=== PATIENT | female | born 1975 | race Caucasian/White ===

== ENCOUNTER 2018-07-28 13:16 | Emergency (ER) | payer OTHER, MEDICAID, SELFPAY ==
[2018-07-28 13:22] VITALS: BP 145/88; PULSE 84; RESP 20; TEMP 35.9; O2SAT 98
--- NOTE | 2018-07-28 13:25 | DI.RAD.S_ITS ---
PROCEDURE: XR FINGER RT MIN 2V INDICATIONS: deformity TECHNIQUE: AP hand, 2 views of the fifth finger(s) acquired. COMPARISON: None. FINDINGS: Bones: There is a posterior dislocation of the fifth finger at the proximal interphalangeal joint. No suspicious bony lesions. Soft tissues: No suspicious soft tissue calcifications. IMPRESSION: Posterior dislocation of the fifth finger at the proximal interphalangeal joint. Dictated by: Gonzalez Castle M.D. on 07/28/2018 at 14:37 Approved by: Gonzalez Castle M.D. on 07/28/2018 at 14:38
--- NOTE | 2018-07-28 14:08 | DI.RAD.S_ITS ---
PROCEDURE: XR SHOULDER RT MIN 2V INDICATIONS: pain fall TECHNIQUE: 3 views of the shoulder were acquired. COMPARISON: None. FINDINGS: Bones: No fractures or dislocations. No suspicious bony lesions. Visualized ribs appear intact. Soft tissues: No suspicious soft tissue calcifications. IMPRESSION: No fracture or dislocation. Dictated by: Gonzalez Castle M.D. on 07/28/2018 at 15:51 Approved by: Gonzalez Castle M.D. on 07/28/2018 at 15:51
--- NOTE | 2018-07-28 14:43 | ED_ITS ---
HPI - Extremity Injury (Upper) General Chief Complaint: Extremity Injury, Upper Stated Complaint: fell off scooter/injured finger R hand Time Seen by Provider: 07/28/18 13:38 Source: patient Mode of arrival: ambulatory Limitations: no limitations History of Present Illness HPI narrative: Patient is a 42-year-old female who presents after a skateboarding accident. She fell onto her right side. She did land on her face no loss of consciousness. She landed on her right shoulder as well she has an obvious pinky dislocation. No head injury no neck pain no numbness or tingling. She basically says everything hurts. He is ambulatory in the ED MD complaint: injury to: right Related Data Allergies Allergy/AdvReac Type Severity Reaction Status Date / Time Penicillins AdvReac Hives Verified 07/28/18 13:21 Review of Systems Review of Systems ROS Unobtainable: All systems reviewed & are unremarkable except as noted in HPI and below Eyes Denies change in vision, Denies eye discharge, Denies irritation and Denies loss of vision Cardiovascular Denies chest pain, Denies irregular heart rhythm, Denies lightheadedness, Denies palpitations, Denies dyspnea, Denies dyspnea on exertion and Denies orthopnea Respiratory Denies cough, Denies dyspnea, Denies dyspnea on exertion and Denies wheezing Gastrointestinal Gastrointestinal: Denies abdominal pain, Denies change in bowel habits, Denies diarrhea, Denies nausea and Denies vomiting Genitourinary Denies hematuria, Denies flank pain, Denies urinary incontinence and Denies urinary urgency Musculoskeletal Reports deformity (Right pinky) Neurologic Denies loss of vision Endocrine Denies palpitations Allergic/Immunologic Denies wheezing [facility] Medical History Hypothyroid (Acute) Social History Smoking Status: Never smoker Social History Smoking Status: Never smoker Exam Initial Vital Signs Initial Vital Signs: Vital Signs Temperature 96.6 F L 07/28/18 13:22 Pulse Rate 84 07/28/18 13:22 Respiratory Rate 20 07/28/18 13:22 Blood Pressure 145/88 H 07/28/18 13:22 Pulse Oximetry 98 07/28/18 13:22 GENERAL: [Well-appearing, well-nourished] and in [no acute] distress. HEENT: Head atraumatic,EOMI, pupils reactive, minimal right-sided facial swelling no abrasion no contusion no periorbital swelling NECK: No vertebral tenderness no step-offs full range of motion CARDIOVASCULAR: Regular rate and rhythm without murmurs, rubs or gallops. RESPIRATORY: Breath sounds equal bilaterally, no wheezes rales or rhonchi. ABDOMEN: Soft, nontender. Normoactive bowel sounds all 4 quadrants. No guarding or rebound. EXTREMITIES: Normal range of motion, no clubbing or edema. Neurovascularly intact Right shoulder is tender full range of motion, slightly tender today Right pinky PIP deformity NEUROLOGICAL: Alert and oriented x4.Normal gait and speech. Cranial nerves II th rough XII grossly intact. SKIN: Warm, dry, no laceration, no petechiae, no rashes or lesions. Procedures Orthopedic Joint Reduction Joint #1: Time Out Performed: Yes Side: right Joint Reduction Location: finger (5th) Local Anesthesia: lidocaine 1% Amount of anesthesic used (mL): 2 Technique used: traction/counter-traction Post-reduction neuro exam: intact Post-reduction vascular: intact Post Reduction X-Ray Obtained: No Post Reduction X-Ray Results: reduced Splint Applied: No Patient Tolerated Procedure: Well Course Orders Ordered: ED Orders 07/28/18 13:25 XR finger RT min 2V Stat 07/28/18 14:08 XR shoulder RT min 2V Stat Vital Signs - 8 hr 07/28/18 13:22 Temperature 96.6 F L Pulse Rate 84 Respiratory Rate 20 Blood Pressure 145/88 H Pulse Oximetry 98 MDM - Extremity Injury (Upper) Imaging Data right 5 th finger : Radiologist's impression: PROCEDURE: XR FINGER RT MIN 2V INDICATIONS: deformity TECHNIQUE: AP hand, 2 views of the fifth finger(s) acquired. COMPARISON: None. FINDINGS: Bones: There is a posterior dislocation of the fifth finger at the proximal interphalangeal joint. No suspicious bony lesions. Soft tissues: No suspicious soft tissue calcifications. IMPRESSION: Posterior dislocation of the fifth finger at the proximal interphalangeal joint. Dictated by: Gonzalez Castle M.D. on 07/28/2018 at 14:37 right shoulder: Radiologist's impression: PROCEDURE: XR SHOULDER RT MIN 2V INDICATIONS: pain fall TECHNIQUE: 3 views of the shoulder were acquired. COMPARISON: None. FINDINGS: Bones: No fractures or dislocations. No suspicious bony lesions. Visualized ribs appear intact. Soft tissues: No suspicious soft tissue calcifications. IMPRESSION: No fracture or dislocation. Dictated by: Gonzalez Castle M.D. on 07/28/2018 at 15:51 Discharge Plan Departure Patient Disposition: Home Clinical Impression: Dislocation of finger PIP joint Qualifiers: Encounter type: initial encounter Qualified Code(s): S63.289A - Dislocation of proximal interphalangeal joint of unspecified finger, initial encounter Discharge Date/Time: 07/28/18 15:26 Interventions: ED Discharge Assessment Last Done: 07/28/18 15:25 Instructions: Finger Dislocation Activity Restrictions/Additional Instructions: *You have been diagnosed with right 5th finger dislocation *What to do: It may be sore for the next few days *Continue to take medications as directed Ibuprofen as directed *Follow up with your primary care provider in 2-3 days *Return to ER if you should have any new, worsening or concerning symptoms
[2018-07-28 15:25] VITALS: BP 153/91; PULSE 79; O2SAT 98
== END 2018-07-28 15:26 | disposition home or self-care (01) ==
PROVIDERS: Emergency Provider Emergency Medicine
DX: S63.286A Dislocation of proximal interphalangeal joint of right little finger, initial encounter (principal); M25.511 Pain in right shoulder; V00.131A Fall from skateboard, initial encounter
CPT/HCPCS: 26770; 73030; 73140; 99282; 99283

== ENCOUNTER 2018-09-06 19:44 | Emergency (ER) | payer OTHER, MEDICAID, SELFPAY ==
--- NOTE | 2018-09-06 19:55 | ED.URI ---
HPI - URI/Sore Throat <Ashley Mota PA-C - Last Filed: 09/06/18 22:05> General Chief Complaint: Upper Respiratory Symptoms Stated Complaint: COLD SYMPTOMS Time Seen by Provider: 09/06/18 19:55 Source: patient Mode of arrival: ambulatory Limitations: no limitations History of Present Illness HPI Narrative: This 42-year-old female comes in due to upper respiratory symptoms. She states that she had a cold for 2 weeks last month which resolved, then shortly after developed a dry cough which she has had for 2 weeks. Today, she started producing some clear, thick sticky mucous, states there was a slight blood tinge to that 1 time. She does feel like she has tight chest at times wheeze. Her chest is sore to touch. She does not have nasal symptoms, sinus pain or sore throat this time. She denies new pain or swelling in the extremities. She denies fever, chills, sweats or other new symptoms on systems review. She denies any known exposures, no sick contacts. She denies possibility of Related Data Allergies Allergy/AdvReac Type Severity Reaction Status Date / Time Penicillins AdvReac Hives Verified 07/28/18 13:21 Review of Systems <Ashley Mota PA-C - Last Filed: 09/06/18 22:05> Review of Systems ROS Unobtainable: All systems reviewed & are unremarkable except as noted in HPI and below PFSH <Ashley Mota PA-C - Last Filed: 09/06/18 22:05> Medical History (Updated 09/06/18 @ 20:47 by Ashley Mota PA-C) Hypothyroid (Chronic) Social History Smoking Status: Never smoker Social History Smoking Status: Never smoker Exam <Ashley Mota PA-C - Last Filed: 09/06/18 22:05> Narrative Exam Narrative: GENERAL APPEARANCE: Patient sitting comfortably, in no distress. HEAD: No sinus TTP. EYES: PERRL, EOMI. EARS: Normal auditory canals, TMS intact with normal light reflexes. ORAL CAVITY: Normal oropharynx. THROAT: Clear. PND noted NECK/THYROID: Neck supple, full range of motion, shotty anterior cervical lymphadenopathy. CHEST: Mild tenderness to palpation LUNGS: Clear to auscultation bilaterally, intermittent dry cough on exam. EXTREMITIES: No cyanosis or edema HEART: RRR without murmur, nl S1, S2, no S3 or S4. Initial Vital Signs Initial Vital Signs: Vital Signs Temperature 98.5 F 09/06/18 19:58 Pulse Rate 80 09/06/18 19:58 Respiratory Rate 20 09/06/18 19:58 Blood Pressure 160/93 H 09/06/18 19:58 Pulse Oximetry 100 09/06/18 19:58 <Doc Cote DO - Last Filed: 09/07/18 06:27> Initial Vital Signs Initial Vital Signs: Vital Signs Temperature 98.5 F 09/06/18 19:58 Pulse Rate 80 09/06/18 19:58 Respiratory Rate 20 09/06/18 19:58 Blood Pressure 160/93 H 09/06/18 19:58 Pulse Oximetry 100 09/06/18 19:58 Course <Ashley Mota PA-C - Last Filed: 09/06/18 22:05> Additional Information: Patient is feeling significantly improved after nebulizer treatment. Symptoms consistent with viral URI/bronchitis. Given albuterol inhaler with spacer and training by respiratory therapy, advised follow-up with PCP in the next few days to determine whether any further treatment needed, and return if acutely worse. She is agreeable Orders Ordered: Discontinued Medications Albuterol/Ipratropium (Duoneb) 3 ml INH NOW ONE Stop: 09/06/18 20:02 Last Admin: 09/06/18 20:12 Dose: 3 ml Vital Signs - 8 hr 09/06/18 19:58 09/06/18 20:12 09/06/18 20:51 Temperature 98.5 F Pulse Rate 80 66 83 Respiratory Rate 20 20 18 Blood Pressure 160/93 H Blood Pressure [Left Wrist] 154/90 H Pulse Oximetry 100 99 100 <Doc Cote DO - Last Filed: 09/07/18 06:27> Orders Ordered: Discontinued Medications Albuterol/Ipratropium (Duoneb) 3 ml INH NOW ONE Stop: 09/06/18 20:02 Last Admin: 09/06/18 20:12 Dose: 3 ml Vital Signs - 8 hr 09/06/18 19:58 09/06/18 20:12 09/06/18 20:51 Temperature 98.5 F Pulse Rate 80 66 83 Respiratory Rate 20 20 18 Blood Pressure 160/93 H Blood Pressure [Left Wrist] 154/90 H Pulse Oximetry 100 99 100 MDM - URI/Sore Throat <Ashley Mota PA-C - Last Filed: 09/06/18 22:05> Imaging Data Chest x-ray: Radiologist's impression: [address] [address] XRay Report Signed Patient: Akua Jay LMR#: [id number] : 1975Acct:[id number] Age/Sex: 42 / FDate of Service: 09/06/18 Loc: ED Accession Number: [id number] Procedure: XR chest 2V Ordering Provider: Ashley Mota P.A-C PROCEDURE: XR CHEST 2V INDICATIONS: cough TECHNIQUE: 2 views of the chest were acquired. COMPARISON: None. FINDINGS: Surgical changes and devices: None. Lungs and pleura: No acute consolidation. Scattered subsegmental atelectasis and/or scarring. . No pleural effusions or pneumothorax. Mediastinum: Mediastinal contours are normal. Heart size is normal. Bones and chest wall: No suspicious bony abnormalities. Soft tissues appear unremarkable. IMPRESSION: No acute disease Dictated by: Bobby Villeda M.D. on 09/06/2018 at 20:34 Approved by: Bobby Villeda M.D. on 09/06/2018 at 20:35 Discharge Plan Departure Patient Disposition: Home Clinical Impression: Bronchitis Reactive airway disease with acute exacerbation Qualifiers: Asthma severity: mild Asthma persistence: intermittent Qualified Code(s): J45.21 - Mild intermittent asthma with (acute) exacerbation Discharge Date/Time: 09/06/18 20:55 Interventions: ED Discharge Assessment Last Done: 09/06/18 20:55 Instructions: DI for Acute Bronchitis, DI for Reactive Airway Disease-Adult Activity Restrictions/Additional Instructions: Your chest x-ray is normal today. I suspect that your cough is due to bronchitis (a chest cold) as well as reactive airways, which is an asthma like reaction that can cause cough, tight chest, and wheeze when you are sick. Please use the inhaler with the spacer that we gave you as often as needed for cough or wheeze. Also start [id number] Aleve (naproxen) 220 mg twice daily for your sore chest. You should return as we talked about if you have any acutely worsening breathing troubles, or chest pain, or new symptoms such as high fever. Otherwise, please follow-up with your PCP for recheck next week to determine whether you need any additional treatment. Referrals: Jesi Macias [Other] <Doc Cote DO - Last Filed: 09/07/18 06:27> Cosign ED Attending [place] Attestation: I was immediately available in the department for consultation. Documentation has been reviewed. I agree with assessment and plan.
[2018-09-06 19:58] VITALS: BP 160/93; PULSE 80; RESP 20; TEMP 36.9; O2SAT 100; BMI 49.7
--- NOTE | 2018-09-06 20:08 | ED_ITS ---
HPI - URI/Sore Throat <Ashley Mota PA-C - Last Filed: 09/06/18 22:05> General Chief Complaint: Upper Respiratory Symptoms Stated Complaint: COLD SYMPTOMS Time Seen by Provider: 09/06/18 19:55 Source: patient Mode of arrival: ambulatory Limitations: no limitations History of Present Illness HPI Narrative: This 42-year-old female comes in due to upper respiratory symptoms. She states that she had a cold for 2 weeks last month which resolved, then shortly after developed a dry cough which she has had for 2 weeks. Today, she started producing some clear, thick sticky mucous, states there was a slight blood tinge to that 1 time. She does feel like she has tight chest at times wheeze. Her chest is sore to touch. She does not have nasal symptoms, sinus pain or sore throat this time. She denies new pain or swelling in the extremities. She denies fever, chills, sweats or other new symptoms on systems review. She denies any known exposures, no sick contacts. She denies poss ibility of Related Data Allergies Allergy/AdvReac Type Severity Reaction Status Date / Time Penicillins AdvReac Hives Verified 07/28/18 13:21 Review of Systems <Ashley Mota PA-C - Last Filed: 09/06/18 22:05> Review of Systems ROS Unobtainable: All systems reviewed & are unremarkable except as noted in HPI and below PFSH <Ashley Mota PA-C - Last Filed: 09/06/18 22:05> Medical History (Updated 09/06/18 @ 20:47 by Ashley Mota PA-C) Hypothyroid (Chronic) Social History Smoking Status: Never smoker Social History Smoking Status: Never smoker Exam <Ashley Mota PA-C - Last Filed: 09/06/18 22:05> Narrative Exam Narrative: GENERAL APPEARANCE: Patient sitting comfortably, in no distress. HEAD: No sinus TTP. EYES: PERRL, EOMI. EARS: Normal auditory canals, TMS intact with normal light reflexes. ORAL CAVITY: Normal oropharynx. THROAT: Clear. PND noted NECK/THYROID: Neck supple, full range of motion, shotty anterior cervical lymphadenopathy. CHEST: Mild tenderness to palpation LUNGS: Clear to auscultation bilaterally, intermittent dry cough on exam. EXTREMITIES: No cyanosis or edema HEART: RRR without murmur, nl S1, S2, no S3 or S4. Initial Vital Signs Initial Vital Signs: Vital Signs Temperature 98.5 F 09/06/18 19:58 Pulse Rate 80 09/06/18 19:58 Respiratory Rate 20 09/06/18 19:58 Blood Pressure 160/93 H 09/06/18 19:58 Pulse Oximetry 100 09/06/18 19:58 <Doc Cote DO - Last Filed: 09/07/18 06:27> Initial Vital Signs Initial Vital Signs: Vital Signs Temperature 98.5 F 09/06/18 19:58 Pulse Rate 80 09/06/18 19:58 Respiratory Rate 20 09/06/18 19:58 Blood Pressure 160/93 H 09/06/18 19:58 Pulse Oximetry 100 09/06/18 19:58 Course <Ashley Mota PA-C - Last Filed: 09/06/18 22:05> Additional Information: Patient is feeling significantly improved after nebulizer treatment. Symptoms consistent with viral URI/bronchitis. Given albuterol inhaler with spacer and training by respiratory therapy, advised follow-up with PCP in the next few days to determine whether any further treatment needed, and return if acutely worse. She is agreeable Orders Ordered: Discontinued Medications Albuterol/Ipratropium (Duoneb) 3 ml INH NOW ONE Stop: 09/06/18 20:02 Last Admin: 09/06/18 20:12 Dose: 3 ml Vital Signs - 8 hr 09/06/18 19:58 09/06/18 20:12 09/06/18 20:51 Temperature 98.5 F Pulse Rate 80 66 83 Respiratory Rate 20 20 18 Blood Pressure 160/93 H Blood Pressure [Left Wrist] 154/90 H Pulse Oximetry 100 99 100 <DO Melisa Kuo Last Filed: 09/07/18 06:27> Orders Ordered: Discontinued Medications Albuterol/Ipratropium (Duoneb) 3 ml INH NOW ONE Stop: 09/06/18 20:02 Last Admin: 09/06/18 20:12 Dose: 3 ml Vital Signs - 8 hr 09/06/18 19:58 09/06/18 20:12 09/06/18 20:51 Temperature 98.5 F Pulse Rate 80 66 83 Respiratory Rate 20 20 18 Blood Pressure 160/93 H Blood Pressure [Left Wrist] 154/90 H Pulse Oximetry 100 99 100 MDM - URI/Sore Throat <Ashley Mota PA-C - Last Filed: 09/06/18 22:05> Imaging Data Chest x-ray: Radiologist's impression: [address] [address] XRay Report Signed Patient: Akua Jay LMR#: [id number] : 1975Acct:[id number] Age/Sex: 42 / FDate of Service: 09/06/18 Loc: ED Accession Number: [id number] Procedure: XR chest 2V Ordering Provider: Ashley Mota P.A-C PROCEDURE: XR CHEST 2V INDICATIONS: cough TECHNIQUE: 2 views of the chest were acquired. COMPARISON: None. FINDINGS: Surgical changes and devices: None. Lungs and pleura: No acute consolidation. Scattered subsegmental atelectasis and/or scarring. . No pleural effusions or pneumothorax. Mediastinum: Mediastinal contours are normal. Heart size is normal. Bones and chest wall: No suspicious bony abnormalities. Soft tissues appear unremarkable. IMPRESSION: No acute disease Dictated by: Bobby Villeda M.D. on 09/06/2018 at 20:34 Approved by: Bobby Villeda M.D. on 09/06/2018 at 20:35 Discharge Plan Departure Patient Disposition: Home Clinical Impression: Bronchitis Reactive airway disease with acute exacerbation Qualifiers: Asthma severity: mild Asthma persistence: intermittent Qualified Code(s): J45.21 - Mild intermittent asthma with (acute) exacerbation Discharge Date/Time: 09/06/18 20:55 Interventions: ED Discharge Assessment Last Done: 09/06/18 20:55 Instructions: DI for Acute Bronchitis, DI for Reactive Airway Disease-Adult Activity Restrictions/Additional Instructions: Your chest x-ray is normal today. I suspect that your cough is due to bronchitis (a chest cold) as well as reactive airways, which is an asthma like reaction that can cause cough, tight chest, and wheeze when you are sick. Please use the inhaler with the spacer that we gave you as often as needed for cough or wheeze. Also start [id number] Aleve (naproxen) 220 mg twice daily for your sore chest. You should return as we talked about if you have any acutely worsening breathing troubles, or chest pain, or new symptoms such as high fever. Otherwise, please follow-up with your PCP for recheck next week to determine whether you need any additional treatment. Referrals: Jesi Macias [Other] <Doc Cote, - Last Filed: 09/07/18 06:27> Cosign ED Attending [place] Attestation: I was immediately available in the department for consultation. Documentation has been reviewed. I agree with assessment and plan.
[2018-09-06 20:12] VITALS: PULSE 66; RESP 20; O2SAT 99
[2018-09-06] MEDS: ALBUTEROL/IPRATROPIUM 3 ML AMPUL INH (20:12)
[2018-09-06 20:51] VITALS: BP 154/90; PULSE 83; RESP 18; O2SAT 100
== END 2018-09-06 20:55 | disposition home or self-care (01) ==
PROVIDERS: Emergency Provider Internal Medicine
DX: J45.21 Mild intermittent asthma with (acute) exacerbation (principal)
CPT/HCPCS: 71046; 94640; 99282; 99283